=== PATIENT | female | born 1995 | race Caucasian/White ===

== ENCOUNTER 2018-10-08 12:35 | Inpatient (IN) | payer OTHER ==
[~2018-10-08 12:35] MED LIST: Bupivacaine/Epinephrine 0.25% 30 ML VIAL ONE; Bupivacaine/Epinephrine 0.5% 10 ML VIAL ONE
[2018-10-08 20:16] VITALS: BMI 38.7
[2018-10-08] MEDS: Lactated Ringer's 1,000 ML IV SCH (20:45)
[2018-10-08] MEDS ORDERED: NS / Oxytocin 40 units/1000ml 1,000 ML IV PRN (21:03)
[2018-10-08] MEDS ORDERED: Promethazine HCl 25 MG/ML VIAL IM PRN (21:03)
[2018-10-08] MEDS ORDERED: Misoprostol 200 MCG TAB PR PRN (21:03)
[2018-10-08] MEDS ORDERED: HYDROcodone/Acetaminophen 5/325 mg Tablet PO PRN ×2 (21:03)
[2018-10-08] MEDS ORDERED: Zolpidem Tartrate 5 MG TAB PO PRN (21:03)
[2018-10-08] MEDS ORDERED: hydrALAZINE 20 MG/ML VIAL SLOW IVP PRN (21:03)
[2018-10-08] MEDS ORDERED: Acetaminophen 500 MG TAB PO PRN (21:03)
[2018-10-08] MEDS ORDERED: Butorphanol Tartrate 1 MG/ML VIAL SLOW IVP PRN (21:03)
[2018-10-08] MEDS ORDERED: Diphenoxylate HCl/Atropine Tablet PO PRN ×2 (21:03)
[2018-10-08] MEDS ORDERED: Carboprost 250 MCG/ML AMP IM PRN (21:03)
[2018-10-08] MEDS ORDERED: Lidocaine 1% (PF) 30 ML VIAL SC PRN (21:03)
[2018-10-08] MEDS ORDERED: Ondansetron PF 4 MG/2 ML Vial IVP PRN (21:03)
[2018-10-08] MEDS ORDERED: Ibuprofen 800 MG TAB PO PRN (21:03)
--- NOTE | 2018-10-08 21:10 | PDOC.LDHP ---
Labor and Delivery H&P Chief complaint: scheduled induction HPI: 23 y/o G1PO at 37 and 6/7 weeks presents for evening medical induction with Cytotec for CHTN/Morbid Obesity. Current gestational age (weeks): 37 Due date: 10/23/18 Grav: 1 Para: 0 Current complications: hypertension Abnormal US findings: No Current medications: pre- vitamins Previous surgical history: none Allergies/Adverse Reactions: Allergies Allergy/AdvReac Type Severity Reaction Status Date / Time No Known Allergies Allergy Verified 10/08/18 20:10 Social history: none - Physical Exam Vital signs reviewed and normal: yes Heart: RRR Lungs: CTAB Abdomen: NTTP Extremeties: no edema FHT: category 1 - Assessment L&D Assessment: medically indicated induction - Plan Plan: admit to L&D, cervical ripening
[2018-10-08] MEDS ORDERED: NS w/ Oxytocin 10 units 500 ML IV SCH (21:15)
[2018-10-08] MEDS: Misoprostol 100 MCG TAB VAG SCH (21:34)
[2018-10-08 21:47] LABS: Hemoglobin 10.6 g/dL (12.0-16.0); Mean Corpuscular Hemoglobin 26.4 pg (27.0-31.0); Mean Corpuscular Volume 82.5 fL (78.0-98.0); Mean Platelet Volume 8.3 fL (7.4-10.4); Platelet Count 328 thou/uL (130-400); RBC Distribution Width 13.8 % (11.5-14.5); White Blood Cell (WBC) Count 10.3 thou/uL (4.8-10.8)
[2018-10-08 22:29] LABS: Syphilis Antibody Nonreactive (Nonreactive); Syphilis Antibody Index 0.05 S/CO (<1.00 Non-Reactive)
[2018-10-08 22:53] LABS: HBSAg Index 0.29 S/CO (0-0.99); Hep B Surf Ag Non-Reactive S/CO (NonReactive)
[2018-10-09] MEDS: Misoprostol 100 MCG TAB VAG SCH (01:27)
[2018-10-09] MEDS: Lactated Ringer's 1,000 ML IV SCH ×2 (02:07→09:50)
[2018-10-09] MEDS: NS w/ Oxytocin 10 units 500 ML IV SCH (05:27)
[2018-10-09] MEDS ORDERED: Fentanyl 4 mcg/Bup 0.1% Cadd 100 ML ONE ×2 (09:09→15:38)
[2018-10-09] MEDS ORDERED: Lidocaine 1.5%/Epinephrine 1:200,000 5 ML AMPUL IJ ONE (09:46)
[2018-10-09] MEDS ORDERED: Lidocaine 1.5% w/Epi 1:200K 30 ML VIAL (Epid Use) NERVE BLCK SCH (10:15)
[2018-10-09] MEDS ORDERED: ePHEDrine/0.9% NaCl/PF SYRINGE 50 mg/10 ml SLOW IVP PRN (10:19)
[2018-10-09] MEDS ORDERED: Lactated Ringer's 500 ML IV PRN (10:19)
[2018-10-09] MEDS ORDERED: Ondansetron PF 4 MG/2 ML Vial IVP PRN (10:19)
[2018-10-09] MEDS ORDERED: Naloxone HCl 0.4 mg/ml Vial IVP PRN ×2 (10:19)
[2018-10-09] MEDS ORDERED: Promethazine HCl 25 MG/ML VIAL IM PRN (10:19)
[2018-10-09] MEDS ORDERED: diphenhydrAMINE 50 MG/ML VIAL IVP PRN (10:19)
[2018-10-09] MEDS ORDERED: Acetaminophen 325 MG TAB PO PRN (10:19)
[2018-10-09] MEDS ORDERED: Communication Order-Pharmacy FS SCH (10:30)
[2018-10-09] MEDS ORDERED: Fentanyl 4 mcg/Bupivacaine 0.1% Cassette 100 ML EPIDURAL SCH (10:30)
[2018-10-09] MEDS ORDERED: Terbutaline Sulfate 1 MG/ML VIAL ONE (10:53)
[2018-10-09] MEDS ORDERED: Fentanyl 100 MCG/2 ML VIAL ONE (16:35)
[2018-10-09] MEDS ORDERED: Fentanyl 100 MCG/2 ML VIAL FS SCH (16:45)
[2018-10-10] MEDS ORDERED: Ondansetron PF 4 MG/2 ML Vial IVP PRN (00:04)
[2018-10-10] MEDS ORDERED: Benzocaine-Menthol 82.5 ML CAN TOP PRN (00:04)
[2018-10-10] MEDS ORDERED: HYDROcodone/Acetaminophen 5/325 mg Tablet PO PRN ×2 (00:04)
[2018-10-10] MEDS ORDERED: hydrALAZINE 20 MG/ML VIAL SLOW IVP PRN (00:04)
[2018-10-10] MEDS ORDERED: Zolpidem Tartrate 5 MG TAB PO PRN (00:04)
[2018-10-10] MEDS ORDERED: NS / Oxytocin 40 units/1000ml 1,000 ML IV SCH (00:04)
[2018-10-10] MEDS ORDERED: Bisacodyl 10 MG SUPP PR PRN (00:04)
[2018-10-10] MEDS ORDERED: Milk Of Magnesia 30 ML UDCUP PO PRN (00:04)
[2018-10-10] MEDS ORDERED: Promethazine HCl 25 MG/ML VIAL IM PRN (00:04)
[2018-10-10] MEDS ORDERED: Preparation H Ointment 28 GM TUBE PR PRN (00:04)
[2018-10-10] MEDS ORDERED: diphenhydrAMINE 25 MG CAP PO PRN (00:04)
[2018-10-10] MEDS ORDERED: Lanolin Ointment 7 GM TUBE TOP PRN (00:04)
[2018-10-10] MEDS: Ibuprofen 800 MG TAB PO SCH ×3 (04:21→21:25)
[2018-10-10 05:56] LABS: #Eosinphils 0.1 thou/uL (0.0-0.7); #Lymphocytes 1.8 thou/uL (1.20-3.40); #Monocytes 1.1 thou/uL (0.11-0.59); #Neutrophils 11.2 thou/uL (1.40-6.50); %Basophils 0.2 % (0.0-1.0); %Eosinophils 0.5 % (0.0-10.0); %Lymphocytes 12.4 % (21.0-51.0); %Monocytes 7.7 % (0.0-10.0); %Neutrophils 79.2 % (42.0-75.0); Hemoglobin 9.6 g/dL (12.0-16.0); Mean Corpuscular HGB CONC 31.6 g/dL (32.0-36.0); Mean Corpuscular Hemoglobin 26.2 pg (27.0-31.0); Mean Corpuscular Volume 82.9 fL (78.0-98.0); Platelet Count 236 thou/uL (130-400); RBC Distribution Width 13.7 % (11.5-14.5); Red Blood Cell (RBC) Count 3.67 mill/uL (4.20-5.40); White Blood Cell (WBC) Count 14.1 thou/uL (4.8-10.8)
[2018-10-10] MEDS: Prenatal Vitamin 1 TAB PO SCH (08:53)
[2018-10-10] MEDS: Docusate Calcium (SURFAK) 240 MG CAP PO SCH ×2 (08:54→21:25)
[2018-10-10] MEDS: Ferrous Sulfate 325 MG TAB PO SCH ×2 (08:54→16:24)
[2018-10-10] MEDS ORDERED: Measles/Mumps/Rubella 10 MCG/0.5 ML VIAL SC ONE (09:00)
[2018-10-10] MEDS ORDERED: Adacel (T-DAP) 0.5 ML SYRINGE IM ONE (09:00)
[2018-10-10] MEDS ORDERED: Varicella virus, LIVE 0.5 ML VIAL SC ONE (09:00)
--- NOTE | 2018-10-10 18:13 | PDOC.PP ---
Post Progress Note Post Day #: 1 PO intake tolerated: yes Flatus: yes Ambulation: yes Vital Signs (12 hours) Temp Pulse Resp BP BP Pulse Ox 10/10/18 15:43 97.9 F 85 18 130/88 98 10/10/18 12:16 97.8 F 95 20 134/86 10/10/18 08:28 97.9 F 80 20 129/74 97 10/10/18 08:00 97 Weight Weight 262 lb - Physical Examination General: NAD Cardiovascular: no m/r/g, RRR Respiratory: clear to auscultation bilaterally, non-labored breathing Abdominal: + bowel sounds, lochia, no distention Extremities: negative homans (B) Neurological: no gross focal deficits Psychiatric: A&Ox3, normal affect Result Diagrams: 10/10/18 05:44 Additional Labs: Post Labs Blood Type A POSITIVE 10/09/18 03:54 Hep Bs Antigen Non-Reactive S/CO (NonReactive) 10/08/18 21:32
--- NOTE | 2018-10-11 02:33 | DN ---
DATE OF PROCEDURE: 10/09/2018 TIME OF SERVICE: At 2020 [place] Daylight Savings Time. PREOPERATIVE DIAGNOSIS: Intrauterine at 38 weeks 0 days with a term induction of labor for chronic hypertension and morbid obesity. POSTOPERATIVE DIAGNOSIS: Intrauterine at 38 weeks 0 days with a term induction of labor for chronic hypertension and morbid obesity. PROCEDURE: Spontaneous vaginal delivery over first-degree laceration of the perineum. FINDINGS: Viable female infant, weighing 3258 g or 7 pounds 3 ounces, Apgars 9 and 9. QUANTITATIVE BLOOD LOSS: 239 mL. COMPLICATIONS: None. PROCEDURE IN DETAIL: The patient presented to [facility] where she was admitted to the labor and delivery service. The patient underwent a normal and uneventful labor with normal cervical dilatation until she was found to be completely dilated. She was then allowed to push and was able to bring the baby down and delivered the baby in a vertex presentation without difficulties. Once the head delivered in occiput anterior position, the shoulders followed spontaneously along with the rest of the baby's body. Once out the baby's mouth and nose were bulb suctioned. The cord was clamped and cut and baby was handed to waiting attendants. Cord blood was collected. Gentle fundal massage was performed and the placenta delivered intact without problems. Hemostasis was assured. Quantitative blood loss was calculated. Inspection of the cervix, vaginal vault, and perineum did not reveal any lacerations needing suturing. Once again, hemostasis was within normal limits and the patient was allowed to recover in the labor and delivery room. Baby went to nursery. Job ID: [id number]
[2018-10-11] MEDS: Ibuprofen 800 MG TAB PO SCH (05:48)
[2018-10-11] MEDS: Misoprostol 100 MCG TAB VAG SCH ×2 (07:43→07:44)
[2018-10-11] MEDS: Lactated Ringer's 1,000 ML IV SCH (07:45)
[2018-10-11] MEDS: NS w/ Oxytocin 10 units 500 ML IV SCH (07:45)
[2018-10-11 08:35] VITALS: BP 111/67; TEMP 98
[2018-10-11] MEDS: Prenatal Vitamin 1 TAB PO SCH (09:44)
[2018-10-11] MEDS: Docusate Calcium (SURFAK) 240 MG CAP PO SCH (09:44)
[2018-10-11] MEDS: Ferrous Sulfate 325 MG TAB PO SCH (09:44)
== END 2018-10-11 12:15 | disposition home or self-care (01) | DRG 807 ==
LOC: L&D 19:38 → 3SW 10-10 00:10
PROVIDERS: ADMIT Obstetrics & Gynecology; ATTEND Obstetrics & Gynecology
PROC: 10E0XZZ Delivery of Products of Conception, External Approach (ICD-10-PCS; principal; 2018-10-09)
PROC: 0HQ9XZZ Repair Perineum Skin, External Approach (ICD-10-PCS; 2018-10-09)
DX: O10.92 Unspecified pre-existing hypertension complicating childbirth (principal); Z37.0 Single live birth; Z3A.37 37 weeks gestation of pregnancy; O99.214 Obesity complicating childbirth; E66.01 Morbid (severe) obesity due to excess calories; O70.0 First degree perineal laceration during delivery
CPT/HCPCS: 36415; 51702; 85025; 85027; 86780; 86850; 86900; 86901; 87340; 90715; J2001; J2590; J3010; J3105; J3490